=== PATIENT | female | born 1965 | race Caucasian/White ===

== ENCOUNTER → 2022-10-23 11:22 | Outpatient (BNVA) | payer OTHER, BC, SELFPAY | PROVIDERS: PCP Family Medicine; Visit Provider Family Medicine | DX: F90.0 Attention-deficit hyperactivity disorder, predominantly inattentive type (principal); Z13.6 Encounter for screening for cardiovascular disorders | CPT/HCPCS: 80053; 80061; 85025 ==

== ENCOUNTER 2023-01-15 15:55 | Outpatient (CLI) | payer OTHER, BC, SELFPAY ==
--- NOTE | 2023-01-15 16:09 | XR_ITS ---
WS: [id number] EXAMINATION: XR ankle LT min 3V* [id number] REASON FOR EXAM: ankle pain and swelling COMPARISON: None available. ORDER DATE: 01/15/2023 4:09 PM TECHNIQUE: 3 views of the left ankle were obtained. X-RAY FINDINGS/IMPRESSION: Plate and compression screws reducing a distal fibular fracture in satisfactory alignment. The ankle mortise is intact..
== END 2023-01-15 15:56 | disposition home or self-care (01) ==
PROVIDERS: PCP Family Medicine; Visit Provider Family Medicine
DX: M25.572 Pain in left ankle and joints of left foot (principal); Z87.81 Personal history of (healed) traumatic fracture; Z98.890 Other specified postprocedural states
CPT/HCPCS: 73610

== ENCOUNTER 2025-05-01 17:57 | Emergency (ER) | payer OTHER, BC, SELFPAY ==
--- OUTSIDE RECORDS SUMMARY | 2024-11-02 09:20 | XMS_ITS ---
Author Organization [facility] Address [address] [place] [address] Care Team Providers Care Diabetologist Name Role Phone Mary Dean Primary Care Provider [phone] REASON FOR VISIT Sick/Fever- 3 month f/u; chronic condition Encounters Encounter Location Date Provider Diagnosis [address] [place] [address] 11/02/2024 Mary Dean Plan Of Treatment No Information Progress Notes * JANE COLEMAN MDOB: [birth year] (59 yo F)Acc No.[id number]:11/02/2024 Progress Notes Patient: Lisa DEVONTEBEA JANE Sweeney Provider: Zahra Dean MD :1965 A ge:59 Y S ex:Female Date:11/02/2024 Address:[address] [place] [address] , [id number] Subjective: * Chief Complaints: * S ick/Fever- 3 month f/u; chronic condition Billing Information: * Procedure Codes: Care Plan Details* * Electronic signature of Mary Dean MD on 05/01/2025 at 05:59 PM INBOUND SALES ADVISOR Sign off status: Pending * Provider: Zahra Dean MD Date: 0 11/02/2024 Generated for Printi ng/Faxing/eTransmitting on: 1 07/01/2024 05:59 PM INBOUND SALES ADVISOR
--- OUTSIDE RECORDS SUMMARY | 2024-11-12 08:40 | XMS_ITS ---
Author Organization [facility] Address [address] [facility] [place] [address] Care Team Providers Care Manager Of Financial Name Role Phone Mary Dean Primary Care Provider [phone] REASON FOR VISIT 3 month f/u; chronic condition Encounters Encounter Location Date Provider Diagnosis [address] [place] [address] 11/12/2024 Mary Dean Plan Of Treatment No Information Progress Notes * JANE COLEMAN MDOB: [birth year] (59 yo F)Acc No.[id number]:11/12/2024 Progress Notes Patient: Lisa JANE ALTAMIRANO Provider: Zahra Dean MD :1965 A ge:59 Y S ex:Female Date:11/12/2024 Address:[address] [place] [address], [id number] Subjective: * Chief Complaints: * 3 month f/u; chronic condition Billing Information: * Procedure Codes: Care Plan Details* * Electronic signature of Mary Dean MD on 05/01/2025 at 06:00 PM WORSHIP DIRECTOR Sign off status: Pending * Provider: Zahra Dean MD Date: 11/12/2024 Generated for Printi ng/Famichaelg/eTransmitting on: 1 07/01/2024 06:00 PM WORSHIP DIRECTOR
--- OUTSIDE RECORDS SUMMARY | 2025-05-01 18:00 | XMS_ITS | Patient Health Record ---
Author Organization [facility] Address [address] [place] [address] Care Team Providers Care Assembler [employer]ather Goods Name Role Phone Mary Dean Primary Care Provider [phone] Darrin Lopez Unavailable [phone] Allergies No Known Allergies Results Component Value Reference Range Flag Notes Vitamin D Total (B) 12659 Reviewed date:08/20/2024 10:59:18 AM Interpretation: Performing Lab: Notes/Report: Diagnosis Description: Vitamin D deficiency, unspecified Vitamin D Total 16.5 30.0-100.0 ng/mL LOW Deficiency: < 20 ng/mL Insufficiency: 20??? < 30 ng/mL Sufficiency: 30???100 ng/mL Performed on the [email or web address] IM Analyzer Reason For Referral No Information Medications Medication SIG (Take, Route, Frequency, Duration) Notes Start Date End Date Status Vitamin D 25 MCG (1000 UT) Tablet 1 tablet Orally Once a day A ctive Albuterol Sulfate HFA 108 (90 Base) MCG/ACT Aerosol Solution 2 puffs as needed every 4-6 hours Inhalation; Duration: 30 days 04/21/2024 Active Immunizations Vaccine Route Administration Date Status Comme nts Flucelvax Trivalent, Syringe 0.5 mL, PF Unknown 024 Refused Social History Tobacco Use: Social History Observation Description Date Details (start date - stop date) Former Smoker NA - NA Social History Depression Screening Social Info Question Answer Notes PHQ-9 Little interest or pleasure in doing thin gs Not at all Feeling down, depressed, or hopeless Not at all Trouble falling or staying asleep, or sleeping t oo much Several days Feeling tired or having little energy Several da ys Poor appetite or overeating Not at all Feeling bad about yourself, or that you are a failure, or have let yourself or your family down Not at all Trouble concentrating on thi ngs, such as reading the newspaper or watching television More than half the days Moving or speaking so slowly that other people could have noticed. Or the opposite ? being so fidgety or restless that you have been moving around a lot more than usual Not at all Thoughts that you would be b marisa off , or of hurting yourself in some way Not at all Total Score 4 Interpretation Minimal Depression Drugs/Alcohol: Social Info Question Answer Notes Drugs Have you used drugs other than those for medical reasons in the past 12 months? No Drug/Alcohol: Social Info Question Answer Notes AUDIT-C (Standard) Did you have a drink containing alcohol in the past year? Yes How often did you have a drink containing alcohol in the past year? Never (0 point) How many drinks did you have on a typical day when you were drinking in the past year? 1 or 2 drinks (0 point) How often did you have six or more drinks on one occasion in the past year? Less than monthly (1 point) Points 1 Interpretation Negative Tobacco Use: Social Info Question Answer Notes Tobacco Control (Standard) Tobacco use: Former smoker Additional Details Category Social Info Options Details Drugs/Alcohol: Do you smoke marijuana? De nies Section Notes: former smoker denies marijuana drinks rarely former smoker denies marijuana drinks rarely Problems Problem Type SNOMED Code ICD Code Onset Dates Problem Status W/U Status Risk Notes Problem Vitamin D deficiency (77125507) Vitamin D deficiency (E55.9) Active confirmed Problem Attention deficit hyperactivity disorder (133958575) Attention deficit hyperactivity disorder (ADHD), combined type (F90.2) Active confirmed Problem Seasonal allergy (781454394) Seasonal allergies (J30.2) Active confirmed Problem Seasonal asthma (738959449) Seasonal asthma (J45.998) Active confirmed Vital Signs Heart Rate 66 /min 08/05/2024 Respiratory Rate 18 /min 08/05/2024 Blood pressure diastolic 82 mm Hg 08/05/2024 Oximetry 98 % 08/05/2024 Height-cm 160.02 cm 08/05/2024 Weight-kg 70.9 kg 08/05/2024 Height 63 in 08/05/2024 Blood pressure systolic 122 mm Hg 08/05/2024 Weight 156.31 lbs 08/05/2024 BMI 27.69 kg/m2 08/05/2024 Encounters Encounter Location Date Provider Diagnosis [facility] [address] [place] [address] 08/05/2024 [place] Vitamin D deficiency E55.9 ; Attention deficit hyperactivity disorder (ADHD), combined type F90.2 and Fullness of submandibular gland K11.8 [place] [address] [place] [address] 06/22/2024 Darrin Lopez Attention deficit hyperactivity disorder (ADHD), combined type F90.2 [place] [address] [place] [address] 05/06/2024 [place] Vitamin D deficiency E55.[address] [place] [address] [place] [address] 08/01/2024 [place] [address] [place] [address] 10/27/2024 [place] Attention deficit hyperactivity disorder (ADHD), combined type F90.2 [facility] [address] [place] [address] 08/31/2024 [place] Attention deficit hyperactivity disorder (ADHD), combined type F90.2 [facility] [address] [place] [address] 08/20/2024 [place] Vitamin D deficiency E55.9 Assessments Encounter Date Diagnosis (ICD Code) Assessment Notes Treatment Notes Treatment Clinical Notes Section Notes 05/06/2024 Vitamin D deficiency (ICD-10 - E55.9) 06/22/2024 Attention deficit hyperactivity disorder (ADHD), combined type (ICD-10 - F90.2) 08/05/2024 Vitamin D deficiency (ICD-10 - E55.9) Chronic. Lab work pending. Continue supplement, patient to call back and confirm VitD dose she is taking at home. Continue to monitor. 08/05/2024 Attention deficit hyperactivity disorder (ADHD), combined type (ICD-10 - F90.2) Chronic. Stable. Refill adderall. Continue to monitor. I declined to increase dosing. If patient would like dose adjustment recommend she be evaluted by psych, she declines. 08/20/2024 Vitamin D deficiency (ICD-10 - E55.9) 08/31/2024 Attention deficit hyperactivity disorder (ADHD), combined type (ICD-10 - F90.2) 10/27/2024 Attention deficit hyperactivity disorder (ADHD), combined type (ICD-10 - F90.2) 08/05/2024 Fullness of submandibular gland (ICD-10 - K11.8) Acute. continue to monitor, if no improvement in a week or so alert clinic for antibiotic regimen. No cervical lymphadenopathy appreciated and patient denies B symptoms. Exam essenstially normal with exception of submanibdular fullness. Consider reactionary vs infection vs malgicnancy. IF no improvement in a week aptient to alert and we will trial antibiotics, if that does not result in resolution will get eval by ENT. Offered eval by ENT today as patient appears anxious abotu it but she declined ENT eval. 08/05/2024 Other All patient's questions are encouraged and addressed to their apparent satisfaction. Unless otherwise noted above, they are agreeable with the proposed plan of care and deny further needs or concerns at this time. I am happy to see patient prior to next office visit as needed for acute concerns. I, Jessica Moscoso, am serving as a scribe to document services personally performed by Mary Dean MD based on my observation and the provider's statement to me. I, Mary Dean MD, attest that Jessica, is acting in a scribe capacity, has observed my performance of the services, and has documented them in accordance with my direction. The information recorded by the scribe is complete and accurate. Plan Of Treatment Future Test Test Name Order Date Vitamin D Total (B) 26713 05/06/2024 Vitamin D Total (B) 48417 11/17/2024 Insurance Providers Payer Name Payer Address Payer Phone Subscriber Number Group Number Insured Name Patient Relationship to Insured Coverage Start Date Coverage End Date [facility] Commercial [address] [address] [place] [address] [id number] JARED JANE Self - patient is the insured [facility] Commercial [address] [place] [address] [id number] JANE COLEMAN Self - patient is the insured Medical (General) History Medical History History ICD Code Chicken Pox migraine headaches Surgical History Surgery Date(Month/Year) section 03/26/1986 ankle surgery ORIF 2011 elbow surgery ORIF Hospitalization History Reason Date(Month/Year) see surgery
[2025-05-01 18:08] VITALS: BP 119/73; PULSE 75; RESP 14; TEMP 36.8; O2SAT 98; BMI 26.5
--- NOTE | 2025-05-01 18:38 | XRR_ITS ---
PROCEDURE INFORMATION: Exam: XR Right Knee Exam date and time: 05/01/2025 6:41 PM Age: 59 years old Clinical indication: Injury or trauma; Fall; Blunt trauma; Knee; Right TECHNIQUE: Imaging protocol: Radiologic exam of the right knee. Views: 3 views. COMPARISON: No relevant prior studies available. FINDINGS: Bones/joints: Normal. Soft tissues: Normal. XR/XR knee RT 3V* 38061 IMPRESSION: No acute findings.
--- NOTE | 2025-05-01 18:54 | W.ED.EXTPRO ---
Documented by User: KACI Lackey 05/01/25 21:28 HPI - Extremity Problem General: Chief complaint: Extremity Injury, Lower Stated complaint: injured right knee Time Seen by Provider: 05/01/25 18:15 Source: patient Mode of arrival: ambulatory Limitations: no limitations History of Present Illness: Patient is a 59-year-old female presenting to the emergency department with right knee pain. States that she hyper flexed her knee while on a ladder and felt a pop, arrives stating that it is swollen. No previous fracture or dislocation or other injury to the right knee. Has been ambulatory but states that she has a limp. She is concerned that she may have torn something due to the pop. No direct trauma. Has not taken any medications for her symptoms. No redness or warmth to the joint. MD Complaint: joint swelling and joint pain Onset (ago): hour(s) Pain Consistency: constant Location: right and knee Associated symptoms: Deny chest pain, fever(s) or rash Related Data Home Medications ?Medication ?Instructions ?Recorded ?Confirmed fexofenadine 180 mg tablet 180 mg PO DAILY 08/23/22 01/01/25 ([facility]) Previous Rx's ?Medication ?Instructions ?Recorded acyclovir 5 % topical ointment 1 applic topical 6XD #15 grams 01/15/23 dextroamphetamine-amphetamine 10 10 mg PO DAILY 30 days #30 tabs 01/01/25 mg tablet (Adderall) dextroamphetamine-amphetamine 10 10 mg PO DAILY 30 days #30 tabs 01/01/25 mg tablet (Adderall) dextroamphetamine-amphetamine 10 10 mg PO DAILY 30 days #30 tabs 01/01/25 mg tablet (Adderall) dextroamphetamine-amphetamine 15 15 mg PO DAILY 30 days #30 tabs 01/01/25 mg tablet (Adderall) dextroamphetamine-amphetamine 15 15 mg PO DAILY 30 days #30 tabs 01/01/25 mg tablet (Adderall) dextroamphetamine-amphetamine 15 15 mg PO DAILY 30 days #30 tabs 01/01/25 mg tablet (Adderall) Allergies Allergy/AdvReac Type Severity Reaction Status Date / Time No Known Allergies Allergy Verified 05/01/25 18:12 Review of Systems General: Reports: 10 or more systems reviewed and unremarkable except in HPI and below Const: Denies: fever(s) or chills Card: Denies: chest pain Resp: Denies: dyspnea or productive cough GI: Denies: abdominal pain, nausea, vomiting or diarrhea : Denies: flank pain Musc: Reports: joint pain and joint swelling; Denies: neck pain, back pain, extremity pain, extremity swelling, joint redness, joint warmth, limited range of motion or muscle weakness Skin/Breast: Denies: rash Neuro: Denies: headache(s), numbness in extremities or weakness in extremities PFS ED PFSH: Medical History (Updated 05/01/25 @ 20:55 by KACI Lackey) History of migraine headaches Tendonitis of elbow, right Attention deficit hyperactivity disorder (ADHD), predominantly inattentive type Surgical History History of History of open reduction and internal fixation (ORIF) procedure left tib/fib Social History Smoking and tobacco/nicotine status: former use of tobacco/nicotine Second hand smoke exposure: No Alcohol intake: never Substance/Drug Use: never Adopted: Yes Household members: spouse Marital status: Highest education level completed: Bachelor's Degree service: No Physical Exam Const: COMMON NORMALS: no acute distress, patient oriented x3, no limitations, healthy appearing, alert and well nourished HENMT: COMMON NORMALS: normocephalic and atraumatic HEAD & SCALP: normocephalic and atraumatic Neck/C-Spine: COMMON NORMALS: full ROM, supple and no meningeal signs Resp: COMMON NORMALS: normal respiratory effort, No use of accessory muscles and clear to auscultation bilaterally AUSCULTATION: clear to auscultation bilaterally Cardio: COMMON NORMALS: regular rate and regular rhythm RATE: regular rate RHYTHM: regular rhythm Extremity: COMMON NORMALS: full ROM, capillary refill normal, no joint enlargement and no clubbing, cyanosis or edema NARRATIVE EXTREMITY EXAM: Tender to palpation to both the medial and lateral joint line of the right knee. There is no significant joint laxity with varus and valgus stress testing. Negative anterior drawer. Negative posterior drawer. Mild reproducible tenderness to palpation to the quad tendon. Distal neurovascular exam of the right lower extremity is normal. Neuro: COMMON NORMALS: patient oriented x3, moves all extremities, no focal motor deficits and no sensory deficits noted SENSORIUM/ORIENTATION: Yes alert MENINGEAL SIGNS: Yes no meningeal signs Skin: COMMON NORMALS: no rashes or lesions noted GENERAL SKIN EXAM: no rashes or lesions noted Course Vital Signs: Vital signs: Vital Signs Temperature 98.2 F 05/01/25 18:08 Pulse Rate 62 05/01/25 21:02 Respiratory Rate 18 05/01/25 21:02 Blood Pressure 117/78 05/01/25 21:02 Pulse Oximetry 98 05/01/25 21:02 MDM - Extremity (Nontraumatic) Medical Decision Making Patient presented with right knee pain after she fell off a ladder today, states she had hyperflexed it. On exam there is no significant abnormalities noted, tender to palpation to the medial and lateral joint line but no significant joint laxity. Has been ambulatory though with a limp. X-ray showed no acute findings. Suspect knee sprain, of unknown significance though there is no significant joint effusion to indicate any major ligament injury. She is informed to treat conservatively until she can follow-up with orthopedics for further evaluation, as if she continues to have pain she may require an MRI. She agrees to this plan at this time. Lab Data Radiology Impressions Knee X-Ray 05/01/25 18:38 IMPRESSION: No acute findings. All radiology interpretation(s) finalized by discharge Discharge Plan Discharge Patient Disposition: Home Clinical Impression: Right knee sprain Qualifiers: Encounter type: initial encounter Involved ligament of knee: unspecified ligament Qualified Code(s): S83.91XA - Sprain of unspecified site of right knee, initial encounter Condition: Stable Prescriptions: No Action fexofenadine [Anne Allergy] 180 mg tablet 180 mg PO DAILY acyclovir 5 % ointment 1 applic topical 6XD Qty: 15 1RF dextroamphetamine-amphetamine [Adderall] 10 mg tablet 10 mg PO DAILY 30 Days Qty: 30 0RF Rx Instructions: Take at 12:00 dextroamphetamine-amphetamine [Adderall] 15 mg tablet 15 mg PO DAILY 30 Days Qty: 30 0RF dextroamphetamine-amphetamine [Adderall] 10 mg tablet 10 mg PO DAILY 30 Days Qty: 30 0RF Rx Instructions: Do not fill until 01/31/2025 Take at 12:00 dextroamphetamine-amphetamine [Adderall] 15 mg tablet 15 mg PO DAILY 30 Days Qty: 30 0RF Rx Instructions: Do not fill until 01/31/2025 dextroamphetamine-amphetamine [Adderall] 10 mg tablet 10 mg PO DAILY 30 Days Qty: 30 0RF Rx Instructions: 10mg at noon Do not fill until 03/02/2025 dextroamphetamine-amphetamine [Adderall] 15 mg tablet 15 mg PO DAILY 30 Days Qty: 30 0RF Rx Instructions: Do not fill before 03/02/2025 Discharge Orders: Discharge ED (Routine); Ordered 05/01/25 Ordered By: Blue Buchanan Referrals: Maria Luisa Valera DO [Primary Care Provider, Family Practice] Patient Instructions: Patient Portal & Kylie Instructions Activity Restrictions/Additional Instructions: Knee Sprain Discharge Instructions You have been diagnosed with a right knee sprain. This means the ligaments around your knee have been stretched or mildly injured, but your X-ray did not show any broken bones. You will be referred to an scientific specialist for further evaluation, which may include an MRI if your symptoms do not improve. At home, follow these steps for recovery: - Rest your knee. Avoid activities that cause pain or put stress on your knee. Try to limit walking and standing for long periods. - Apply ice. Use an ice pack wrapped in a damp cloth on your knee for 20?30 minutes, 3?4 times a day. Do not put ice directly on your skin. - Compression. You may use an elastic bandage or knee sleeve for comfort, but make sure it is not too tight. If you notice numbness, tingling, or color changes in your foot, remove the wrap. - Elevate your leg. When sitting or lying down, prop your leg up on pillows to help reduce swelling. - Pain relief. You may use acetaminophen (Tylenol) or a short course of low-dose ibuprofen (Advil, Motrin) as needed for pain, unless you have been told not to use these medications. - Early movement. As pain allows, gently move your knee to keep it from getting stiff. Avoid forceful bending or twisting. - Activity modification. Gradually return to normal activities as your pain improves. If walking is painful, use a cane or crutches for support. Watch for these signs and seek medical attention if you notice: - Severe pain or swelling that does not improve - Inability to bear weight or walk - Numbness, tingling, or loss of movement in your leg or foot - Redness, warmth, or fever Follow-up: Attend your orthopedic appointment as scheduled. If your symptoms persist or worsen, further imaging (such as MRI) may be needed to check for ligament or meniscus injuries. Most knee sprains improve with conservative care and time. Staying active within your comfort level and following these instructions will help your recovery. 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 Fwd Documented by User: Arnie Santiago DO 05/02/25 03:39 HPI - Extremity Problem General: Chief complaint: Extremity Injury, Lower Stated complaint: injured right knee Time Seen by Provider: 05/01/25 18:15 Related Data Home Medications ?Medication ?Instructions ?Recorded ?Confirmed fexofenadine 180 mg tablet 180 mg PO DAILY 08/23/22 01/01/25 ([facility] Allergy) Previous Rx's ?Medication ?Instructions ?Recorded acyclovir 5 % topical ointment 1 applic topical 6XD #15 grams 01/15/23 dextroamphetamine-amphetamine 10 10 mg PO DAILY 30 days #30 tabs 01/01/25 mg tablet (Adderall) dextroamphetamine-amphetamine 10 10 mg PO DAILY 30 days #30 tabs 01/01/25 mg tablet (Adderall) dextroamphetamine-amphetamine 10 10 mg PO DAILY 30 days #30 tabs 01/01/25 mg tablet (Adderall) dextroamphetamine-amphetamine 15 15 mg PO DAILY 30 days #30 tabs 01/01/25 mg tablet (Adderall) dextroamphetamine-amphetamine 15 15 mg PO DAILY 30 days #30 tabs 01/01/25 mg tablet (Adderall) dextroamphetamine-amphetamine 15 15 mg PO DAILY 30 days #30 tabs 01/01/25 mg tablet (Adderall) Allergies Allergy/AdvReac Type Severity Reaction Status Date / Time No Known Allergies Allergy Verified 05/01/25 18:12 [facility] ED PFSH: Medical History (Updated 05/01/25 @ 20:55 by KACI Lackey) History of migraine headaches Tendonitis of elbow, right Attention deficit hyperactivity disorder (ADHD), predominantly inattentive type Surgical History History of History of open reduction and internal fixation (ORIF) procedure left tib/fib Social History Smoking and tobacco/nicotine status: former use of tobacco/nicotine Second hand smoke exposure: No Alcohol intake: never Substance/Drug Use: never Adopted: Yes Household members: spouse Marital status: Highest education level completed: Bachelor's Degree service: No Course Vital Signs: Vital signs: Vital Signs Temperature 98.2 F 05/01/25 18:08 Pulse Rate 62 05/01/25 21:02 Respiratory Rate 18 05/01/25 21:02 Blood Pressure 117/78 05/01/25 21:02 Pulse Oximetry 98 05/01/25 21:02 MDM - Extremity (Nontraumatic) Medical Decision Making Patient presented with right knee pain after she fell off a ladder today, states she had hyperflexed it. On exam there is no significant abnormalities noted, tender to palpation to the medial and lateral joint line but no significant joint laxity. Has been ambulatory though with a limp. X-ray showed no acute findings. Suspect knee sprain, of unknown significance though there is no significant joint effusion to indicate any major ligament injury. She is informed to treat conservatively until she can follow-up with orthopedics for further evaluation, as if she continues to have pain she may require an MRI. She agrees to this plan at this time. Patient originally seen by Mr. Dewayne PA-C. I agree with his history, evaluation, and management. Lab Data Radiology Impressions Knee X-Ray 05/01/25 18:38 IMPRESSION: No acute findings. Discharge Plan Discharge Patient Disposition: Home Clinical Impression: Right knee sprain Qualifiers: Encounter type: initial encounter Involved ligament of knee: unspecified ligament Qualified Code(s): S83.91XA - Sprain of unspecified site of right knee, initial encounter Condition: Stable Prescriptions: No Action fexofenadine [Anne Allergy] 180 mg tablet 180 mg PO DAILY acyclovir 5 % ointment 1 applic topical 6XD Qty: 15 1RF dextroamphetamine-amphetamine [Adderall] 10 mg tablet 10 mg PO DAILY 30 Days Qty: 30 0RF Rx Instructions: Take at 12:00 dextroamphetamine-amphetamine [Adderall] 15 mg tablet 15 mg PO DAILY 30 Days Qty: 30 0RF dextroamphetamine-amphetamine [Adderall] 10 mg tablet 10 mg PO DAILY 30 Days Qty: 30 0RF Rx Instructions: Do not fill until 01/31/2025 Take at 12:00 dextroamphetamine-amphetamine [Adderall] 15 mg tablet 15 mg PO DAILY 30 Days Qty: 30 0RF Rx Instructions: Do not fill until 01/31/2025 dextroamphetamine-amphetamine [Adderall] 10 mg tablet 10 mg PO DAILY 30 Days Qty: 30 0RF Rx Instructions: 10mg at noon Do not fill until 03/02/2025 dextroamphetamine-amphetamine [Adderall] 15 mg tablet 15 mg PO DAILY 30 Days Qty: 30 0RF Rx Instructions: Do not fill before 03/02/2025 Discharge Orders: Discharge ED (Routine); Ordered 05/01/25 Ordered By: Blue Buchanan Referrals: Maria Luisa Valera DO [Primary Care Provider, Family Practice] Patient Instructions: Patient Portal & Kylie Instructions Activity Restrictions/Additional Instructions: Knee Sprain Discharge Instructions You have been diagnosed with a right knee sprain. This means the ligaments around your knee have been stretched or mildly injured, but your X-ray did not show any broken bones. You will be referred to an scientific specialist for further evaluation, which may include an MRI if your symptoms do not improve. At home, follow these steps for recovery: - Rest your knee. Avoid activities that cause pain or put stress on your knee. Try to limit walking and standing for long periods. - Apply ice. Use an ice pack wrapped in a damp cloth on your knee for 20?30 minutes, 3?4 times a day. Do not put ice directly on your skin. - Compression. You may use an elastic bandage or knee sleeve for comfort, but make sure it is not too tight. If you notice numbness, tingling, or color changes in your foot, remove the wrap. - Elevate your leg. When sitting or lying down, prop your leg up on pillows to help reduce swelling. - Pain relief. You may use acetaminophen (Tylenol) or a short course of low-dose ibuprofen (Advil, Motrin) as needed for pain, unless you have been told not to use these medications. - Early movement. As pain allows, gently move your knee to keep it from getting stiff. Avoid forceful bending or twisting. - Activity modification. Gradually return to normal activities as your pain improves. If walking is painful, use a cane or crutches for support. Watch for these signs and seek medical attention if you notice: - Severe pain or swelling that does not improve - Inability to bear weight or walk - Numbness, tingling, or loss of movement in your leg or foot - Redness, warmth, or fever Follow-up: Attend your orthopedic appointment as scheduled. If your symptoms persist or worsen, further imaging (such as MRI) may be needed to check for ligament or meniscus injuries. Most knee sprains improve with conservative care and time. Staying active within your comfort level and following these instructions will help your recovery. Print Language: Tajik Coding Level of Care Code ED Sheet Metal Worker Apprentice for Sarita Guy
[2025-05-01 21:01] VITALS: BP 117/78; PULSE 64; O2SAT 98
[2025-05-01 21:02] VITALS: BP 117/78; PULSE 62; RESP 18; O2SAT 98
--- NOTE | 2025-05-03 09:06 | DCPLANNER ---
messaged ortho for er f/u
== END 2025-05-01 21:10 | disposition home or self-care (01) ==
PROVIDERS: Emergency Provider Physician Assistant; PCP Family Medicine
DX: S83.91XA Sprain of unspecified site of right knee, initial encounter (principal); X58.XXXA Exposure to other specified factors, initial encounter
CPT/HCPCS: 73562; 99283; J9999